=== PATIENT | male | born 1960 | race Hispanic/Latino ===

== ENCOUNTER → 2018-03-23 10:33 | Outpatient (CLI) | payer OTHER, SELFPAY ==
--- NOTE | 2018-03-23 | DI.RAD.S_ITS ---
PROCEDURE: XR LUMBAR SPINE 2-3V INDICATIONS: LOW BACK PAIN TECHNIQUE: 3 views of the lumbar spine were acquired. COMPARISON: [facility], CR, XR LUMBAR SPINE WITH OBLIQUES, 12/02/2017, 14:15. FINDINGS: Bones: 5 [id number] vertebrae are present. There is normal bony alignment. No vertebral body compression fractures. No suspicious bony lesions. Soft tissues: Overlying bowel gas pattern is normal. No suspicious soft tissue calcifications. IMPRESSION: Mild degenerative disc disease, except at L5-S1 where moderate such degeneration is present. Moderate facet osteoarthritis at L4-5 and L5-S1. Possible spinal and foraminal stenosis at that level. 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 Dictated by: Ronnie Lux M.D. on 03/23/2018 at 11:38 Approved by: Ronnie Lux M.D. on 03/23/2018 at 11:39
== END ==
DX: M51.37 Other intervertebral disc degeneration, lumbosacral region (principal); M51.36 Other intervertebral disc degeneration, lumbar region; M47.816 Spondylosis without myelopathy or radiculopathy, lumbar region; M47.817 Spondylosis without myelopathy or radiculopathy, lumbosacral region; M54.5 Low back pain
CPT/HCPCS: 72100